=== PATIENT | male | born 1965 | race Caucasian/White ===

== ENCOUNTER → 2017-06-16 | Outpatient (CLI) | payer BC ==
--- NOTE | 2017-06-16 08:43 | CT ---
EXAMINATION TYPE: CT iac wo con DATE OF EXAM: 06/16/2017 COMPARISON: NONE HISTORY: Otosclerosis, pre-Cochlear implant CT DLP: 150mGycm Automated exposure control for dose reduction was used. FINDINGS: The external auditory canals are patent bilaterally. Mastoid air cells show no evidence of abnormal opacification bilaterally. The middle ear ossicles are symmetric and unremarkable. There is no evidence of suspicious surrounding soft tissue density to suggest cholesteatoma. The scutum is preserved bilaterally. The cochlea and the semicircular canals are symmetric and unremarkable. Ves tibular aqueduct and internal carotid canal appear unremarkable. Temporomandibular joints are mainta ined bilaterally. There is evidence of chronic pansinusitis. IMPRESSION: 1. Chronic pansinusitis. 2. Otherwise unremarkable examination.
== END | disposition home or self-care (01) ==
LOC: RADCTMAIN 07:17
PROVIDERS: ATTEND Otolaryngology
DX: J32.4 Chronic pansinusitis (principal); H80.90 Unspecified otosclerosis, unspecified ear
CPT/HCPCS: 70480

== ENCOUNTER 2019-12-23 06:38 | Day surgery (SDC) | payer BC ==
[2019-12-20 11:28] VITALS: BMI 30.4
[~2019-12-23 06:38] MED LIST: LACTATED RINGERS 1,000 ML IV SCH; LIDOCAINE 1% (10MG/ML) FOR IV START INTRADERMA PRN
[2019-12-23 07:02] VITALS: TEMP 97.5
--- NOTE | 2019-12-23 07:34 | P.GSHP ---
History of Present Illness H&P Date: 12/23/19 Chief Complaint: Screening colonoscopy This a 54-year-old male presents today for screening colonoscopy. Patient denies a significant GI bleed. Past Medical History Additional Past Medical History / Comment(s): currently being tx for swimmer's rt ear History of Any Multi-Drug Resistant Organisms: None Reported Past Surgical History: Ear Surgery Additional Past Surgical History / Comment(s): surgery left ear. Past Anesthesia/Blood Transfusion Reactions: No Reported Reaction Smoking Status: Never smoker - Past Family History Mother Family Medical History: Cancer Additional Family Medical History / Comment(s): breast CA Medications and Allergies Home Medications Medication Instructions Recorded Confirmed Type Antibiotic Ear Drop Rt Ear 1 drop RIGHT EAR BID 12/20/19 12/23/19 History Allergies Allergy/AdvReac Type Severity Reaction Status Date / Time Penicillins Allergy Rash/Hives Verified 12/23/19 06:59 Surgical - Exam Vital Signs Temp Pulse Resp BP Pulse Ox 97.5 F L 68 18 152/83 95 12/23/19 07:00 12/23/19 07:00 12/23/19 07:00 12/23/19 07:00 12/23/19 07:00 - General well developed, well nourished, no distress - Eyes PERRL - ENT normal pinna - Neck no masses - Respiratory normal expansion - Cardiovascular Rhythm: regular - Abdomen Abdomen: soft, non tender Assessment and Plan Assessment: We'll perform screening colonoscopy.
[2019-12-23] MEDS ORDERED: PROPOFOL 10 MG/ML 20 ML VIAL IV ONE (07:40)
--- NOTE | 2019-12-23 07:50 | P.OP ---
Date of Procedure: 12/23/19 Preoperative Diagnosis: Screening colonoscopy Postoperative Diagnosis: Normal colonoscopy Procedure(s) Performed: Colonoscopy Anesthesia: MAC Surgeon: Lele Duncan Pathology: none sent Condition: stable Disposition: PACU Description of Procedure: PROCEDURE: The patient was placed on the endoscopy table in the lateral position. Digital rectal examination was performed which revealed no abnormalities. The prostate was symmetrical without nodules. Flexible colonoscope was then placed in the patient's anus and passed throughout the entire colon. The ileocecal valve was visualized. The cecum, ascending, transverse, descending and sigmoid colon were normal. The rectum was normal as well. There were no masses, polyps or diverticula noted in the entire colon. SUMMARY OF FINDINGS: Normal colonoscopy.
[2019-12-23 08:01] VITALS: RESP 16
[2019-12-23 08:12] VITALS: BP 153/96; PULSE 64
== END 2019-12-23 08:40 | disposition home or self-care (01) ==
LOC: ORWHC2ENDO 06:38
PROVIDERS: ATTEND Surgery
DX: Z12.11 Encounter for screening for malignant neoplasm of colon (principal); E66.9 Obesity, unspecified; Z88.0 Allergy status to penicillin; Z98.890 Other specified postprocedural states; Z80.3 Family history of malignant neoplasm of breast; Z68.30 Body mass index [BMI] 30.0-30.9, adult
CPT/HCPCS: G0121; J2704; 45378

== ENCOUNTER 2024-10-16 21:56 | Emergency (ER) | payer BC ==
--- NOTE | 2024-10-16 23:32 | ED ---
Eye Problem HPI - General Chief complaint: Eye Problems Stated complaint: right eye pain Time Seen by Provider: 10/16/24 22:42 Source: patient, RN notes reviewed, old records reviewed Mode of arrival: ambulatory Limitations: no limitations - History of Present Illness Initial comments: This is a 59 male to the ED with c/o eye laceration and eye injury. No overt blurry vision no significant pain just concern for laceration to the MD chief complaint: eye pain, eye redness, eye injury -: minutes(s) Location: right eye Place: home If Injury: none Eye Symptoms: burning Severity: mild If Pain, Quality: aching Consistency: constant Context: recent uri Associated Symptoms: none Treatments Prior to Arrival: none - Related Data Home Medications Medication Instructions Recorded Confirmed Antibiotic Ear Drop Rt Ear 1 drop RIGHT EAR BID 12/20/19 12/23/19 Allergies Allergy/AdvReac Type Severity Reaction Status Date / Time Penicillins Allergy Rash/Hives Verified 10/16/24 22:30 Review of Systems ROS Statement: Those systems with pertinent positive or pertinent negative responses have been documented in the HPI. ROS Other: All systems not noted in ROS Statement are negative. Past Medical History Additional Past Medical History / Comment(s): currently being tx for swimmer's rt ear History of Any Multi-Drug Resistant Organisms: None Reported Past Surgical History: Ear Surgery Additional Past Surgical History / Comment(s): surgery left ear. Past Anesthesia/Blood Transfusion Reactions: No Reported Reaction Past Psychological History: No Psychological Hx Reported Smoking Status: Never smoker Past Alcohol Use History: None Reported Past Drug Use History: None Reported - Past Family History Mother Family Medical History: Cancer Additional Family Medical History / Comment(s): breast CA General Exam Limitations: no limitations General appearance: alert, in no apparent distress Head exam: Present: atraumatic, normocephalic, normal inspection Eye exam: Present: normal appearance, PERRL, EOMI, other (eye laceration). Absent: scleral icterus, conjunctival injection, periorbital swelling ENT exam: Present: normal exam, mucous membranes moist Neck exam: Present: normal inspection. Absent: tenderness, meningismus, lymp hadenopathy Respiratory exam: Present: normal lung sounds bilaterally. Absent: respiratory distress, wheezes, rales, rhonchi, stridor Cardiovascular Exam: Present: regular rate, normal rhythm, normal heart sounds. Absent: systolic murmur, diastolic murmur, rubs, gallop, clicks GI/Abdominal exam: Present: soft, normal bowel sounds. Absent: distended, tenderness, guarding, rebound, rigid Extremities exam: Present: normal inspection, full ROM, normal capillary refill. Absent: tenderness, pedal edema, joint swelling, calf tenderness Back exam: Present: normal inspection Neurological exam: Present: alert, oriented X3, CN II-XII intact Psychiatric exam: Present: normal affect, normal mood Skin exam: Present: warm, dry, intact, normal color. Absent: rash Course Vital Signs 10/16/24 10/16/24 22:25 23:53 Temperature 97.8 F 97.9 F Pulse Rate 69 79 Respiratory 19 18 Rate Blood Pressure 154/90 147/79 O2 Sat by Pulse 98 97 Oximetry - Reevaluation(s) Reevaluation #1: Medical records reviewed Reevaluation #2: Patient symptoms unchanged Reevaluation #3: Patient symptoms unchanged Medical Decision Making - Medical Decision Making 59 male with corneal abrasion corneal laceration right eye Disposition Clinical Impression: Corneal abrasion, right, Corneal laceration of right eye Disposition: HOME SELF-CARE Condition: Good Instructions (If sedation given, give patient instructions): Corneal Abrasion (ED) Is patient prescribed a controlled substance at d/c from ED?: No Referrals: Andres Carvajal MD [STAFF PHYSICIAN] - 1-2 days Time of Disposition: 23:30
[2024-10-16] MEDS: TOBRAMYCIN 0.3% OPHTH DROPS 5 ML BTL RIGHT EYE STA (23:47)
[2024-10-16] MEDS: DIPH,PERTUS(ACELL)TETVAC-LF 0.5 ML VIAL IM ONE (23:48)
[2024-10-16 23:55] VITALS: BP 147/79; PULSE 79; RESP 18; TEMP 97.9
== END 2024-10-16 23:53 | disposition home or self-care (01) ==
LOC: EC 21:56
CPT/HCPCS: 90471; 90715; 99283